=== PATIENT | female | born 1990 | race Caucasian/White ===

== ENCOUNTER 2017-08-20 08:26 | Emergency (ER) | payer SELFPAY ==
[~2017-08-20] VITALS: Ht 175.3 cm; Wt 104.8 kg
[2017-08-20 08:36] VITALS: Ht 175.3 cm; Wt 104.8 kg
[2017-08-20 09:23] VITALS: BP 99/77
== END 2017-08-20 09:23 | disposition home or self-care (01) ==
LOC: ED 08:26
DX: L51.9 Erythema multiforme, unspecified (principal); J45.909 Unspecified asthma, uncomplicated